=== PATIENT | female | born 1995 | race Caucasian/White ===

== ENCOUNTER 2017-06-18 19:17 | Emergency (ER) | payer BC, MEDICAID ==
[2017-06-18 22:47] LABS: CALCIUM 8.8 mg/dL (8.5-10.1); CARBON DIOXIDE 22.2 mmol/L (21-32); CHLORIDE SERUM 102 mmol/L (98-107); CREATININE SERUM 0.7 mg/dL (0.6-1.0); GFR1 > 60 mL/min; GLUCOSE SERUM 118 mg/dL (74-106); POTASSIUM SERUM 3.6 mmol/L (3.5-5.1); SODIUM SERUM 138 mmol/L (136-145)
[2017-06-19 01:13] LABS: BASOPHIL % 0.2 % (0-2); PLATELET COUNT 302 x10^3mcL (130-400)
[2017-06-19 02:04] VITALS: BP 109/67
== END 2017-06-19 02:04 | disposition short-term general hospital (02) ==
LOC: ED 19:17
PROVIDERS: Emergency Medicine
DX: J36 Peritonsillar abscess (principal); R50.9 Fever, unspecified; Z79.1 Long term (current) use of non-steroidal anti-inflammatories (NSAID); Z79.2 Long term (current) use of antibiotics
CPT/HCPCS: J1100; J1885; J3490; J7030; Q9967